=== PATIENT | female | born 1995 | race Caucasian/White ===

== ENCOUNTER 2023-05-28 12:24 | Emergency (ER) | payer BC ==
[~2023-05-28] VITALS: Ht 157.5 cm; Wt 81.2 kg
[2023-05-28] MEDS ORDERED: SERT-141 PO (12:43)
[2023-05-28] MEDS ORDERED: TRI-TAB16 PO (12:43)
[2023-05-28] MEDS ORDERED: TIZA4CAP PO (12:44)
[2023-05-28] MEDS ORDERED: LIDOCAINE 5% (LIDODERM) PATCH TD ONE (14:35)
[2023-05-28] MEDS ORDERED: KETOROLAC 60MG 2ML VIAL IM ONE (14:35)
[2023-05-28] MEDS ORDERED: CYCLOBENZAPRINE 10MG TABLET PO ONE (14:35)
[2023-05-28] MEDS ORDERED: traMADol 50 MG TAB PO ONE (14:45)
[2023-05-28] MEDS ORDERED: CYCL-707 PO (16:16)
[2023-05-28] MEDS ORDERED: LIDO5DIS41 TOP (16:16)
[2023-05-28] MEDS ORDERED: KETO10TAB PO (16:16)
[2023-05-28 16:36] VITALS: BP 132/57; TEMP 98; O2SAT 99
== END 2023-05-28 16:37 | disposition home or self-care (01) ==
LOC: M ED 12:24
DX: M62.830 Muscle spasm of back (principal); F10.10 Alcohol abuse, uncomplicated; Z88.0 Allergy status to penicillin; Z88.2 Allergy status to sulfonamides; Z88.8 Allergy status to other drugs, medicaments and biological substances; Z79.891 Long term (current) use of opiate analgesic; Z79.899 Other long term (current) drug therapy
CPT/HCPCS: 96372; 99283; J1885

== ENCOUNTER → 2023-05-28 | Outpatient (CLI) | payer BC ==
[~2023-05-28] MED LIST: CYCL-707 PO; KETO10TAB PO; LIDO5DIS41 TOP; SERT-141 PO; TIZA4CAP PO; TRI-TAB16 PO
[2023-05-28 17:57] LABS: BASO # 0.1 10^3/uL (0.0-0.2); BASO % 0.5 % (0.0-1.0); EOS % 0.1 % (0.0-3.0); HEMOGLOBIN 12.2 g/dl (12.0-15.5); LYMPH # 1.7 10^3/uL (1.5-5.0); LYMPH % 15.7 % (24.0-44.0); MEAN CORPUSCULAR HEMOGLOBIN 26.8 pg (27.0-33.0); MEAN CORPUSCULAR HGB CONC 32.1 g/dl (32.0-36.5); MEAN CORPUSCULAR VOLUME 83.5 fl (80.0-96.0); MONO # 0.6 10^3/uL (0.0-0.8); MONO % 5.2 % (2.0-8.0); NEUTROPHILS # 8.4 10^3/uL (1.5-8.5); NEUTROPHILS % 78.3 % (36.0-66.0); PLATELET COUNT, AUTOMATED 332 10^3/uL (150-450); RED BLOOD COUNT 4.55 10^6/uL (4.00-5.40); WHITE BLOOD COUNT 10.7 10^3/uL (4.0-10.0)
[2023-05-28 18:17] LABS: PERCENT SATURATION 7.2 % (13.2-45.0)
[2023-05-28 18:19] LABS: FREE T4 1.01 NG/DL (0.89-1.76)
[2023-05-28 18:20] LABS: FERRITIN 73.6 NG/ML (7.3-270.7); THYROID STIMULATING HORMONE 0.881 uIU/ML (0.55-4.78)
== END ==
LOC: M LAB 17:04
PROVIDERS: ATTEND Internal Medicine
DX: F41.9 Anxiety disorder, unspecified (principal); E03.9 Hypothyroidism, unspecified; I10 Essential (primary) hypertension; D50.9 Iron deficiency anemia, unspecified

== ENCOUNTER → 2023-07-29 | Outpatient (CLI) | payer BC | LOC: M SLEEP HO 11:39 | PROVIDERS: ATTEND Nurse Practitioner Adult Health | DX: G47.30 Sleep apnea, unspecified (principal) ==

== ENCOUNTER → 2023-08-16 | Outpatient (CLI) | payer BC | LOC: M WUC 12:34 | PROVIDERS: ATTEND Nurse Practitioner Family | DX: M25.572 Pain in left ankle and joints of left foot (principal); M77.32 Calcaneal spur, left foot; M25.472 Effusion, left ankle ==

== ENCOUNTER → 2024-09-26 | Outpatient (REF) | payer OTHER ==
[~2024-09-26] MED LIST changes: +LIDO1ADH93 TOP; -LIDO5DIS41 TOP
== END ==
LOC: M LAB REF 12:02
PROVIDERS: ATTEND Nurse Practitioner Family
DX: N39.0 Urinary tract infection, site not specified (principal)